=== PATIENT | male | born 1940 | race Caucasian/White ===

== ENCOUNTER 2018-07-03 17:46 | Outpatient (REF) | payer MEDICARE, OTHER, SELFPAY ==
[2018-07-03 22:22] LABS: Anion Gap 8.6 mmol/L (3-11); BUN 16 mg/dL (7-18); CO2 25.4 mmol/L (21.0-32.0); CREATININE 1.08 mg/dL (0.70-1.30); Calcium 8.7 mg/dL (8.5-10.1); Chloride 106 mmol/L (98-107); Cholesterol 82 mg/dL (50-200); Glucose 110 mg/dL (70-100); HDL Cholesterol 42 mg/dL (40-60); LDL CHOLESTEROL 29 mg/dL (<100); Potassium 4.6 mmol/L (3.5-5.1); Sodium 140 mmol/L (136-145); Triglyceride 80 mg/dL (30-150)
[2018-07-03 22:33] LABS: Uric Acid 4.4 mg/dL (3.5-7.2)
== END 2018-07-03 18:06 ==
LOC: NCHCN 17:46
PROVIDERS: PCP Internal Medicine; Visit Provider Internal Medicine
DX: E11.3299 Type 2 diabetes mellitus with mild nonproliferative diabetic retinopathy without macular edema, unspecified eye (principal); I25.10 Atherosclerotic heart disease of native coronary artery without angina pectoris; E66.9 Obesity, unspecified
CPT/HCPCS: 80048; 80061; 83721; 84550

== ENCOUNTER 2019-08-27 08:01 | Outpatient (REF) | payer MEDICARE, OTHER, SELFPAY ==
[2019-08-27 21:40] LABS: COMMENT (LAB VIEW ONLY) 101.51 mg/dL; Microalb ug/mg Crea 6.3 ug/mg Cr
[2019-08-27 21:55] LABS: Anion Gap 10.1 mmol/L (3-11); BUN 23 mg/dL (7-18); CO2 25.9 mmol/L (21.0-32.0); CREATININE 1.12 mg/dL (0.70-1.30); Calcium 8.8 mg/dL (8.5-10.1); Calculated LDL 26 mg/dL; Chloride 105 mmol/L (98-107); Cholesterol 78 mg/dL (50-200); Glucose 109 mg/dL (70-100); HDL Cholesterol 40 mg/dL (40-60); Potassium 4.1 mmol/L (3.5-5.1); Sodium 141 mmol/L (136-145); Triglyceride 64 mg/dL (30-150)
== END 2019-08-27 08:21 ==
LOC: NCHCN 08:01
PROVIDERS: PCP Internal Medicine; Visit Provider Internal Medicine
DX: I10 Essential (primary) hypertension (principal); E11.9 Type 2 diabetes mellitus without complications; I25.10 Atherosclerotic heart disease of native coronary artery without angina pectoris
CPT/HCPCS: 80048; 80061; 82043; 82570

== ENCOUNTER 2019-12-05 08:56 | Outpatient (REF) | payer OTHER, SELFPAY ==
[2019-12-06 11:21] LABS: HCT 46.1 % (40.0-50.0); HGB 16.1 g/dL (13.5-17.5); RBC 5.44 m/cumm (4.50-6.00); White Blood Cell Count 7.82 k/cumm (4.4-10.8)
[2019-12-06 11:22] LABS: Mean Corp. HGB Concentration 34.9 g/dL (32.0-36.0); Mean Corpuscular Hemoglobin 29.6 pg (27.0-33.0); Mean Corpuscular Volume 84.7 fL (80-95); Mean Platelet Volume 10.6 fL (8.0-11.0); Platelet Count 127 x1000/uL (130-400); RBC Distribution Width 14.7 % (11.8-14.1)
[2019-12-06 11:35] LABS: Hemoglobin A1C 8.1 % (3.8-5.6)
== END 2019-12-05 09:16 ==
LOC: NCHCN 08:56
PROVIDERS: PCP Internal Medicine; Visit Provider Nurse Practitioner Family
DX: E11.3299 Type 2 diabetes mellitus with mild nonproliferative diabetic retinopathy without macular edema, unspecified eye (principal); I10 Essential (primary) hypertension
CPT/HCPCS: 85027; 83036

== ENCOUNTER 2020-07-14 09:01 | Outpatient (REF) | payer OTHER, SELFPAY ==
[2020-07-14 22:20] LABS: Anion Gap 8.6 mmol/L (3-11); BUN 25 mg/dL (7-18); CO2 28.4 mmol/L (21.0-32.0); CREATININE 1.22 mg/dL (0.70-1.30); Chloride 105 mmol/L (98-107); Estimated GFR 57.45 (mL/min/1.73m2); Glucose 125 mg/dL (74-106); Sodium 142 mmol/L (136-145)
[2020-07-14 22:25] LABS: Hemoglobin A1C 8.1 % (<5.7)
== END 2020-07-14 09:21 ==
LOC: NCHCN 09:01
PROVIDERS: PCP Internal Medicine; Visit Provider Internal Medicine
DX: E11.3299 Type 2 diabetes mellitus with mild nonproliferative diabetic retinopathy without macular edema, unspecified eye (principal); I10 Essential (primary) hypertension
CPT/HCPCS: 80048; 83036

== ENCOUNTER 2021-02-24 08:31 | Outpatient (REF) | payer OTHER, SELFPAY ==
[2021-02-24 13:33] LABS: ALT 43 U/L (16-63); AST 24 U/L (15-37); Albumin 3.8 g/dL (3.4-5.0); Alkaline Phosphatase 102 U/L (46-116); Anion Gap 8.2 mmol/L (3-11); BUN 16 mg/dL (7-18); Bilirubin, Total 0.8 mg/dL (0.2-1.0); CO2 27.8 mmol/L (21.0-32.0); CREATININE 1.1 mg/dL (0.70-1.30); Calcium 9.2 mg/dL (8.5-10.1); Chloride 106 mmol/L (98-107); Glucose 125 mg/dL (74-106); Potassium 4.6 mmol/L (3.5-5.1); Sodium 142 mmol/L (136-145); Total Protein 6.9 g/dL (6.4-8.2)
[2021-02-24 13:35] LABS: COMMENT (LAB VIEW ONLY) 70.17 mg/dL; Microalb ug/mg Crea 4.3 ug/mg Cr
[2021-02-24 13:50] LABS: Hemoglobin A1C 7.3 % (<5.7)
== END 2021-02-24 08:32 | disposition home or self-care (01) ==
LOC: NCHCN 08:31
PROVIDERS: PCP Internal Medicine; Visit Provider Internal Medicine
DX: E11.3293 Type 2 diabetes mellitus with mild nonproliferative diabetic retinopathy without macular edema, bilateral (principal); I10 Essential (primary) hypertension; I25.10 Atherosclerotic heart disease of native coronary artery without angina pectoris
CPT/HCPCS: 80053; 82043; 82570; 83036

== ENCOUNTER 2021-09-09 09:15 | Outpatient (REF) | payer MEDICARE, SELFPAY ==
[2021-09-10 01:14] LABS: COVID-19 RT-PCR UVMMC Result Negative (Negative)
== END 2021-09-09 09:16 | disposition home or self-care (01) ==
LOC: NCHCN 09:15
PROVIDERS: PCP Internal Medicine; Visit Provider Nurse Practitioner Family
DX: Z20.822 Contact with and (suspected) exposure to COVID-19 (principal); R05.8 Other specified cough
CPT/HCPCS: U0003; U0005

== ENCOUNTER 2022-02-07 14:48 | Outpatient (REF) | payer MEDICARE, SELFPAY ==
[2022-02-07 18:15] LABS: Hemoglobin A1C 7.7 % (<5.7)
[2022-02-07 18:28] LABS: ALT 35 U/L (16-63); AST 17 U/L (15-37); Albumin 3.7 g/dL (3.4-5.0); Alkaline Phosphatase 118 U/L (46-116); Anion Gap 11.9 mmol/L (3-11); BUN 22 mg/dL (7-18); Bilirubin, Total 0.9 mg/dL (0.2-1.0); CO2 24.1 mmol/L (21.0-32.0); CREATININE 1.1 mg/dL (0.70-1.30); Calcium 9.1 mg/dL (8.5-10.1); Chloride 104 mmol/L (98-107); Glucose 301 mg/dL (74-106); Potassium 4.2 mmol/L (3.5-5.1); Sodium 140 mmol/L (136-145); Total Protein 6.7 g/dL (6.4-8.2)
== END 2022-02-07 14:49 | disposition home or self-care (01) ==
LOC: NCHCN 14:48
PROVIDERS: PCP Internal Medicine; Visit Provider Internal Medicine
DX: I10 Essential (primary) hypertension (principal); E11.3293 Type 2 diabetes mellitus with mild nonproliferative diabetic retinopathy without macular edema, bilateral
CPT/HCPCS: 80053; 83036

== ENCOUNTER 2022-02-14 08:18 | Outpatient (REF) | payer OTHER, SELFPAY ==
[2022-02-14 17:47] LABS: COMMENT (LAB VIEW ONLY) 42.44 mg/dL; Microalb ug/mg Crea 50.4 ug/mg Cr
== END 2022-02-14 08:19 | disposition home or self-care (01) ==
LOC: NCHCN 08:18
PROVIDERS: PCP Internal Medicine; Visit Provider Nurse Practitioner Family
DX: E11.3293 Type 2 diabetes mellitus with mild nonproliferative diabetic retinopathy without macular edema, bilateral (principal)
CPT/HCPCS: 82043; 82570

== ENCOUNTER 2022-06-16 16:16 | Outpatient (REF) | payer OTHER, SELFPAY ==
[2022-06-16 18:08] LABS: Abs Immature Grans 0.03 10^3/uL (0.0-0.06); Absolute Basophil Count 0.03 10^3/uL (0.0-0.2); Absolute Eosinophil Count 0.06 10^3/uL (0.0-0.7); Absolute Lymphocyte Count 1.63 10^3/uL (1.2-3.4); Absolute Neutrophil Count 5.28 10^3/uL (1.2-6.7); Basophils % 0.4; Eosinophils % 0.8; HCT 47.2 % (40.0-50.0); HGB 16.1 g/dL (13.5-17.5); Immature Grans % 0.4; Lymphocytes % 20.6; MCHC 34.1 % (32.0-36.0); MCV 88 fL (80-95); MPV 11.5 fL (8.0-11.0); Monocytes % 11.3; Neutrophils % 66.5; Platelet Count 162 10^3/uL (130-400); RBC 5.36 10^6/uL (4.36-5.78); RDW 14.8 % (11.8-14.1); RDW-SD 47.8 fL; WBC 7.93 10^3/uL (4.4-10.8)
== END 2022-06-16 16:17 | disposition home or self-care (01) ==
LOC: NCHCN 16:16
PROVIDERS: PCP Internal Medicine; Visit Provider Nurse Practitioner Family
DX: R06.09 Other forms of dyspnea (principal)
CPT/HCPCS: 85025

== ENCOUNTER 2022-11-01 13:45 | Outpatient (REF) | payer MEDICARE, OTHER, SELFPAY ==
[2022-11-01 22:01] LABS: Anion Gap 11.7 mmol/L (3-11); BUN 24 mg/dL (7-18); CO2 24.3 mmol/L (21.0-32.0); CREATININE 1.1 mg/dL (0.70-1.30); Calcium 9.3 mg/dL (8.5-10.1); Chloride 105 mmol/L (98-107); Estimated GFR 67.44 (mL/min/1.73m2); Glucose 156 mg/dL (74-106); Potassium 4.2 mmol/L (3.5-5.1); Sodium 141 mmol/L (136-145); Uric Acid 5.2 mg/dL (3.5-7.2)
[2022-11-02 19:20] LABS: PSA, Screening 9.5 ng/mL (<=6.5)
== END 2022-11-01 13:46 | disposition home or self-care (01) ==
LOC: NCHCN 13:45
PROVIDERS: PCP Internal Medicine; Visit Provider Internal Medicine
DX: M10.9 Gout, unspecified (principal); L03.031 Cellulitis of right toe; N40.0 Benign prostatic hyperplasia without lower urinary tract symptoms; Z12.5 Encounter for screening for malignant neoplasm of prostate; G60.9 Hereditary and idiopathic neuropathy, unspecified
CPT/HCPCS: 80048; 84153; 84550

== ENCOUNTER 2022-11-15 21:48 | Outpatient (REF) | payer MEDICARE, OTHER, SELFPAY ==
[2022-11-15 21:48] LABS: Abs Immature Grans 0.03 10^3/uL (0.0-0.06); Absolute Basophil Count 0.03 10^3/uL (0.0-0.2); Absolute Eosinophil Count 0.07 10^3/uL (0.0-0.7); Absolute Lymphocyte Count 2.01 10^3/uL (1.2-3.4); Absolute Monocyte Count 1.03 10^3/uL (0.1-0.8); Absolute Neutrophil Count 5.11 10^3/uL (1.2-6.7); Basophils % 0.4; ESR 5 mm/hr (0-20); Eosinophils % 0.8; HCT 46.3 % (40.0-50.0); HGB 15.9 g/dL (13.5-17.5); Immature Grans % 0.4; Lymphocytes % 24.3; MCH 30.1 pg (27.0-33.0); MCHC 34.3 % (32.0-36.0); MCV 88 fL (80-95); MPV 10.6 fL (8.0-11.0); Monocytes % 12.4; Neutrophils % 61.7; Platelet Count 178 10^3/uL (130-400); RBC 5.28 10^6/uL (4.36-5.78); RDW-SD 48.7 fL; WBC 8.28 10^3/uL (4.4-10.8)
[2022-11-15 22:51] LABS: C-Reactive Protein < 0.05 mg/dL (0.0-0.3)
== END 2022-11-15 21:49 | disposition home or self-care (01) ==
LOC: NCHCN 21:48
PROVIDERS: PCP Internal Medicine; Visit Provider Internal Medicine
DX: M00.871 Arthritis due to other bacteria, right ankle and foot (principal); L03.031 Cellulitis of right toe; G60.9 Hereditary and idiopathic neuropathy, unspecified
CPT/HCPCS: 85652; 85025; 86140

== ENCOUNTER 2022-12-12 13:28 | Outpatient (REF) | payer MEDICARE, OTHER, SELFPAY ==
[2022-12-12 14:57] LABS: Abs Immature Grans 0.03 10^3/uL (0.0-0.06); Absolute Basophil Count 0.02 10^3/uL (0.0-0.2); Absolute Eosinophil Count 0.05 10^3/uL (0.0-0.7); Absolute Lymphocyte Count 1.43 10^3/uL (1.2-3.4); Absolute Monocyte Count 1.36 10^3/uL (0.1-0.8); Absolute Neutrophil Count 5.55 10^3/uL (1.2-6.7); Basophils % 0.2; Eosinophils % 0.6; HCT 45.8 % (40.0-50.0); HGB 15.6 g/dL (13.5-17.5); Immature Grans % 0.4; Lymphocytes % 16.9; MCH 30.4 pg (27.0-33.0); MCHC 34.1 % (32.0-36.0); MCV 89 fL (80-95); MPV 10.3 fL (8.0-11.0); Monocytes % 16.1; Neutrophils % 65.8; Platelet Count 169 10^3/uL (130-400); RBC 5.13 10^6/uL (4.36-5.78); RDW-SD 49.6 fL; WBC 8.44 10^3/uL (4.4-10.8)
[2022-12-12 14:58] LABS: ESR 14 mm/hr (0-20)
[2022-12-12 15:10] LABS: C-Reactive Protein 0.09 mg/dL (0.0-0.3)
== END 2022-12-12 13:29 | disposition home or self-care (01) ==
LOC: NCHCN 13:28
PROVIDERS: PCP Internal Medicine; Visit Provider Nurse Practitioner Family
DX: M79.674 Pain in right toe(s) (principal); G60.9 Hereditary and idiopathic neuropathy, unspecified
CPT/HCPCS: 85652; 85025; 86140

== ENCOUNTER 2023-07-04 19:34 | Outpatient (REF) | payer MEDICARE, OTHER, SELFPAY ==
[2023-07-04 16:52] LABS: COMMENT (LAB VIEW ONLY) 43.31 mg/dL; Microalb ug/mg Crea 10.6 ug/mg Cr
== END 2023-07-04 19:35 | disposition home or self-care (01) ==
LOC: NCHCN 19:34
PROVIDERS: PCP Internal Medicine; Visit Provider Internal Medicine
DX: E11.3293 Type 2 diabetes mellitus with mild nonproliferative diabetic retinopathy without macular edema, bilateral (principal)
CPT/HCPCS: 82043; 82570

== ENCOUNTER 2024-04-07 20:39 | Outpatient (REF) | payer MEDICARE, OTHER, SELFPAY ==
[2024-04-07 22:04] LABS: HCT 42.9 % (40.0-50.0); HGB 15.1 g/dL (13.5-17.5); MCH 30.8 pg (27.0-33.0); MCHC 35.2 % (32.0-36.0); MCV 88 fL (80-95); MPV 10.3 fL (8.0-11.0); Platelet Count 178 10^3/uL (130-400); RDW 14.5 % (11.8-14.1); RDW-SD 46.3 fL; WBC 7.47 10^3/uL (4.4-10.8)
[2024-04-07 22:20] LABS: Anion Gap 8.9 mmol/L (3-11); BUN 30 mg/dL (7-18); CO2 26.1 mmol/L (21.0-32.0); CREATININE 1.3 mg/dL (0.70-1.30); Calcium 9.8 mg/dL (8.5-10.1); Calculated LDL 5 mg/dL (<100); Chloride 99 mmol/L (98-107); Cholesterol 83 mg/dL (<200); Estimated GFR 54.85 (mL/min/1.73m2); Glucose 343 mg/dL (74-106); HDL Cholesterol 50 mg/dL (40-60); Sodium 134 mmol/L (136-145); Triglyceride 142 mg/dL (<150)
== END 2024-04-07 20:40 | disposition home or self-care (01) ==
LOC: LBN 20:39
PROVIDERS: PCP Internal Medicine; Visit Provider Internal Medicine
DX: I48.0 Paroxysmal atrial fibrillation (principal); I73.9 Peripheral vascular disease, unspecified; E11.9 Type 2 diabetes mellitus without complications; R79.89 Other specified abnormal findings of blood chemistry
CPT/HCPCS: 80048; 80061; 85027

== ENCOUNTER 2024-05-08 17:15 | Outpatient (REF) | payer MEDICARE, OTHER, SELFPAY ==
[2024-05-08 21:03] LABS: Abs Immature Grans 0.02 10^3/uL (0.0-0.06); Absolute Basophil Count 0.03 10^3/uL (0.0-0.2); Absolute Eosinophil Count 0.03 10^3/uL (0.0-0.7); Absolute Lymphocyte Count 2.41 10^3/uL (1.2-3.4); Absolute Monocyte Count 0.97 10^3/uL (0.1-0.8); Absolute Neutrophil Count 4.83 10^3/uL (1.2-6.7); Basophils % 0.4 %; Eosinophils % 0.4 %; HCT 42.8 % (40.0-50.0); Immature Grans % 0.2 %; Lymphocytes % 29.1 %; MCH 30.7 pg (27.0-33.0); MCV 88 fL (80-95); MPV 9.6 fL (8.0-11.0); Monocytes % 11.7 %; Neutrophils % 58.2 %; Platelet Count 155 10^3/uL (130-400); RBC 4.89 10^6/uL (4.36-5.78); RDW 14.4 % (11.8-14.1); RDW-SD 46.3 fL; WBC 8.29 10^3/uL (4.4-10.8)
[2024-05-08 21:19] LABS: ALT 30 U/L (16-63); AST 24 U/L (15-37); Albumin 3.2 g/dL (3.4-5.0); Alkaline Phosphatase 115 U/L (46-116); Anion Gap 11.2 mmol/L (3-11); BUN 28 mg/dL (7-18); Bilirubin, Total 0.79 mg/dL (0.2-1.0); CO2 25.8 mmol/L (21.0-32.0); CREATININE 1.3 mg/dL (0.70-1.30); Calcium 9.1 mg/dL (8.5-10.1); Chloride 101 mmol/L (98-107); Estimated GFR 54.85 (mL/min/1.73m2); Glucose 220 mg/dL (74-106); NT-proBNP 169 pg/mL (<300); Potassium 4.7 mmol/L (3.5-5.1); Sodium 138 mmol/L (136-145); Total Protein 7.2 g/dL (6.4-8.2)
== END 2024-05-08 17:16 | disposition home or self-care (01) ==
LOC: NCHCN 17:15
PROVIDERS: PCP Internal Medicine; Visit Provider Family Medicine
DX: R63.4 Abnormal weight loss (principal)
CPT/HCPCS: 80053; 83880; 85025

== ENCOUNTER 2024-07-11 21:41 | Outpatient (REF) | payer MEDICARE, OTHER, SELFPAY ==
[2024-07-11 22:43] LABS: COMMENT (LAB VIEW ONLY) 30.81 mg/dL; Microalb ug/mg Crea 8.1 ug/mg Cr
== END 2024-07-11 21:42 | disposition home or self-care (01) ==
LOC: NCHCN 21:41
PROVIDERS: PCP Internal Medicine; Visit Provider Internal Medicine
DX: E11.9 Type 2 diabetes mellitus without complications (principal)
CPT/HCPCS: 82043; 82570

== ENCOUNTER 2024-09-05 22:21 | Outpatient (REF) | payer MEDICARE, OTHER, SELFPAY ==
[2024-09-05 21:02] LABS: Abs Immature Grans 0.14 10^3/uL (0.0-0.06); Absolute Basophil Count 0.06 10^3/uL (0.0-0.2); Absolute Lymphocyte Count 1.93 10^3/uL (1.2-3.4); Absolute Monocyte Count 1.47 10^3/uL (0.1-0.8); Basophils % 0.4 %; Eosinophils % 0.3 %; HCT 42.8 % (40.0-50.0); HGB 14.7 g/dL (13.5-17.5); Immature Grans % 0.9 %; Lymphocytes % 12.1 %; MCH 30.1 pg (27.0-33.0); MCHC 34.3 % (32.0-36.0); MCV 88 fL (80-95); Monocytes % 9.2 %; Neutrophils % 77.1 %; RBC 4.89 10^6/uL (4.36-5.78); RDW 14.2 % (11.8-14.1); RDW-SD 45.7 fL; WBC 15.96 10^3/uL (4.4-10.8)
[2024-09-05 21:04] LABS: Absolute Eosinophil Count 0.05 10^3/uL (0.0-0.7); Absolute Neutrophil Count 12.31 10^3/uL (1.2-6.7)
[2024-09-05 21:08] LABS: Diff Comment PLT Morph Reviewed; RBC Morphology Normal
[2024-09-05 21:25] LABS: ALT 20 U/L (16-63); AST 24 U/L (15-37); Albumin 2.8 g/dL (3.4-5.0); Alkaline Phosphatase 104 U/L (46-116); Anion Gap 8.8 mmol/L (3-11); BUN 32 mg/dL (7-18); CO2 27.2 mmol/L (21.0-32.0); CREATININE 1.3 mg/dL (0.70-1.30); Calcium 9.3 mg/dL (8.5-10.1); Chloride 100 mmol/L (98-107); Estimated GFR 54.85 (mL/min/1.73m2); Glucose 151 mg/dL (74-106); Potassium 4.6 mmol/L (3.5-5.1); Sodium 136 mmol/L (136-145); TSH (W/Ref FT4) 1.81 uIU/mL (0.36-3.74); Total Protein 7.2 g/dL (6.4-8.2)
== END 2024-09-05 22:22 | disposition home or self-care (01) ==
LOC: NCHCN 22:21
PROVIDERS: PCP Internal Medicine; Visit Provider Internal Medicine
DX: R53.83 Other fatigue (principal); R32 Unspecified urinary incontinence
CPT/HCPCS: 80053; 87077; 84443; 85025; 87086; 87186

== ENCOUNTER 2025-02-23 18:48 | Outpatient (REF) | payer MEDICARE, SELFPAY ==
[2025-02-23 21:35] LABS: Bacteria Many HPF (Negative); C & S Indicated? C&S Done As Ordered; Crystals Mod Calcium Oxalate HPF (Negative); Epithelial Cells Moderate HPF (Negative); Mucus Trace (Negative)
== END 2025-02-23 18:49 | disposition home or self-care (01) ==
LOC: NCHCN 18:48
PROVIDERS: PCP Internal Medicine; Visit Provider Internal Medicine
DX: R30.0 Dysuria (principal); B96.29 Other Escherichia coli [E. coli] as the cause of diseases classified elsewhere
CPT/HCPCS: 87077; 81015; 87086; 87186

== ENCOUNTER 2025-03-13 17:08 | Outpatient (REF) | payer MEDICARE, OTHER, SELFPAY | END 2025-03-13 17:09 | disposition home or self-care (01) | LOC: NCHCN 17:08 | PROVIDERS: PCP Internal Medicine; Visit Provider Internal Medicine | DX: N39.0 Urinary tract infection, site not specified (principal); R82.89 Other abnormal findings on cytological and histological examination of urine | CPT/HCPCS: 87086 ==

== ENCOUNTER 2025-03-19 18:44 | Outpatient (REF) | payer MEDICARE, OTHER, SELFPAY ==
[2025-03-19 21:18] LABS: HCT 45.4 % (40.0-50.0); HGB 15.8 g/dL (13.5-17.5); MCH 29.8 pg (27.0-33.0); MCHC 34.8 % (32.0-36.0); MCV 86 fL (80-95); MPV 9.5 fL (8.0-11.0); Platelet Count 179 10^3/uL (130-400); RBC 5.31 10^6/uL (4.36-5.78); RDW-SD 43.4 fL; WBC 10.34 10^3/uL (4.4-10.8)
[2025-03-19 21:38] LABS: ALT 38 U/L (16-63); AST 29 U/L (15-37); Albumin 3.8 g/dL (3.4-5.0); Alkaline Phosphatase 118 U/L (46-116); Anion Gap 11.5 mmol/L (3-11); BUN 37 mg/dL (7-18); Bilirubin, Total 0.7 mg/dL (0.2-1.0); CO2 23.5 mmol/L (21.0-32.0); CREATININE 1.5 mg/dL (0.70-1.30); Calcium 10.2 mg/dL (8.5-10.1); Chloride 99 mmol/L (98-107); Estimated GFR 45.91 (mL/min/1.73m2); Glucose 151 mg/dL (74-106); Potassium 4.6 mmol/L (3.5-5.1); Sodium 134 mmol/L (136-145); TSH (W/Ref FT4) 1.71 uIU/mL (0.36-3.74); Total Protein 7.7 g/dL (6.4-8.2)
== END 2025-03-19 18:45 | disposition home or self-care (01) ==
LOC: NCHCN 18:44
PROVIDERS: PCP Internal Medicine; Visit Provider Family Medicine
DX: I48.20 Chronic atrial fibrillation, unspecified (principal); W19.XXXA Unspecified fall, initial encounter
CPT/HCPCS: 80053; 85027; 84443

== ENCOUNTER 2025-03-30 18:56 | Outpatient (REF) | payer MEDICARE, SELFPAY ==
[2025-03-30 21:50] LABS: Anion Gap 10.4 mmol/L (3-11); BUN 26 mg/dL (7-18); CO2 23.6 mmol/L (21.0-32.0); CREATININE 1.2 mg/dL (0.70-1.30); Calcium 9.4 mg/dL (8.5-10.1); Chloride 101 mmol/L (98-107); Glucose 460 mg/dL (74-106); Potassium 4.7 mmol/L (3.5-5.1); Sodium 135 mmol/L (136-145)
== END 2025-03-30 18:57 | disposition home or self-care (01) ==
LOC: NCHCN 18:56
PROVIDERS: PCP Internal Medicine; Visit Provider Internal Medicine
DX: N17.9 Acute kidney failure, unspecified (principal)
CPT/HCPCS: 80048

== ENCOUNTER 2025-08-17 14:21 | Outpatient (REF) | payer MEDICARE, SELFPAY ==
[2025-08-17 16:06] LABS: Abs Immature Grans 0.05 10^3/uL (0.0-0.06); HCT 36.6 % (40.0-50.0); HGB 12.5 g/dL (13.5-17.5); Immature Grans % 0.6 %; MCH 29.7 pg (27.0-33.0); MCHC 34.2 % (32.0-36.0); MCV 87 fL (80-95); MPV 10.3 fL (8.0-11.0); Platelet Count 192 10^3/uL (130-400); RBC 4.21 10^6/uL (4.36-5.78); RDW 15.8 % (11.8-14.1); RDW-SD 49.2 fL; WBC 8.41 10^3/uL (4.4-10.8)
[2025-08-17 16:52] LABS: Hemoglobin A1C 7.4 % (<5.7)
[2025-08-17 16:57] LABS: ALT 37 U/L (16-63); AST 18 U/L (15-37); Albumin 2.7 g/dL (3.4-5.0); Alkaline Phosphatase 106 U/L (46-116); Anion Gap 8.7 mmol/L (3-11); BUN 10 mg/dL (7-18); Bilirubin, Total 0.7 mg/dL (0.2-1.0); CO2 25.3 mmol/L (21.0-32.0); Calcium 8.4 mg/dL (8.5-10.1); Chloride 102 mmol/L (98-107); Estimated GFR 87.81 (mL/min/1.73m2); Glucose 201 mg/dL (74-106); Potassium 4.1 mmol/L (3.5-5.1); Sodium 136 mmol/L (136-145); TSH 2.25 uIU/mL (0.36-3.74); Total Protein 6.5 g/dL (6.4-8.2)
== END 2025-08-17 14:22 | disposition home or self-care (01) ==
LOC: LBN 14:21
PROVIDERS: PCP Internal Medicine; Visit Provider Internal Medicine
DX: E11.40 Type 2 diabetes mellitus with diabetic neuropathy, unspecified (principal)
CPT/HCPCS: 80053; 83036; 84443; 85025